=== PATIENT | female | born 1965 | race Caucasian/White ===

== ENCOUNTER 2021-01-07 01:30 | Inpatient (IN) ==
[2021-01-07] MEDS ORDERED: HYDROmorphone 2 MG/1 ML VIAL IV STA (01:49)
[2021-01-07] MEDS ORDERED: ONDANSETRON 4 MG/2 ML VIAL IV STA (01:49)
[2021-01-07] MEDS ORDERED: SODIUM CHLORIDE 0.9% 500 ML IV STA (01:49)
[2021-01-07 02:07] LABS: Basophils % 0.3 % (0.0-0.8); Eosinophils # 0.1 10*3/uL (0.0-0.87); Eosinophils % 0.9 % (0.00-10.9); Hematocrit 39.8 VOL% (35.7-47.0); Hemoglobin 12.6 GM/DL (12.0-16.0); Immature Granulocytes % 0.4 %; Immature Granulocytes Absolute 0.04 #; Lymphocytes # 1.1 10*3/uL (1.4-4.0); Mean Corpuscular HGB Conc 31.7 GM/DL (32-36); Mean Corpuscular Volume 90.5 FL (87-102); Mean Platelet Volume 9.7 FL (9.6-12.0); Monocytes % 7.8 % (1.7-12.7); Neutrophils % 79.6 % (38.7-73.9); Platelet Count 281 T/CUMM (130-400); Red Cell Distribution Width 13.1 % (9.3-17.3); White Blood Count 9.5 T/CUMM (4-12)
[2021-01-07 02:26] LABS: Albumin 3.3 G/DL (3.4-5.0); Bilirubin,Total 0.7 MG/DL (0.2-1.0); Osmolality,Calculated 282.1 MOS/KG (273-304); Potassium 3.6 MMOL/L (3.5-5.1); Total Protein 6.8 G/DL (6.4-8.2)
[2021-01-07] MEDS ORDERED: PROMETHAZINE 25 MG/1 ML VIAL IM STA (02:36)
[2021-01-07] MEDS ORDERED: PIPERACILLIN/TAZOBACTAM 3,375 MG in SODIUM CHLORIDE 0.9% 100 ML IV STA (02:38)
[2021-01-07 03:21] LABS: Bacteria,Urine Occasional /HPF (Few); Bilirubin,Urine Negative (Negative); Blood, Urine Negative (Negative); Calcium Oxalate Crystals,Urine Occasional /HPF (Few); Glucose,Urine (UA) Negative (Negative); Ketones,Urine Negative (Negative); Mucus,Urine Many /LPF (Occasional); Nitrite,Urine Negative (Negative); Protein,Urine Negative; RBC,Urine 2 /HPF (0-4); Squamous Epithelial Cell,Urine Occasional /HPF (0-10); Urine Appearance CLEAR (Clear); Urine Color Yellow (Yellow); WBC,Urine 2 /HPF (0-6)
[2021-01-07] MEDS ORDERED: SODIUM CHLORIDE 0.9% 500 ML IV ONE ×2 (04:10→04:42)
[2021-01-07] MEDS ORDERED: GLUCAGON 1 MG VIAL IM PRN (04:31)
[2021-01-07] MEDS ORDERED: PROMETHAZINE 25 MG/1 ML VIAL IM PRN (04:31)
[2021-01-07] MEDS ORDERED: DEXTROSE 50% 25 GM/50 ML VIAL IV PRN (04:31)
[2021-01-07] MEDS ORDERED: ONDANSETRON 4 MG/2 ML VIAL IV PRN (04:31)
[2021-01-07] MEDS ORDERED: HYDROmorphone 2 MG/1 ML VIAL IV PRN ×2 (04:34→09:23)
[2021-01-07] MEDS: SODIUM CHLORIDE 0.9% 1,000 ML IV SCH ×3 (06:28→21:37)
[2021-01-07] MEDS: PANTOPRAZOLE 40 MG VIAL IV SCH (09:20)
[2021-01-07] MEDS: HYDROmorphone 2 MG/1 ML VIAL IV SCH ×8 (09:21→23:56)
[2021-01-07] MEDS: PIPERACILLIN/TAZOBACTAM 3,375 MG in SODIUM CHLORIDE 0.9% 100 ML IV SCH ×2 (10:21→18:27)
[2021-01-08] MEDS: HYDROmorphone 2 MG/1 ML VIAL IV SCH ×4 (02:36→08:37)
[2021-01-08] MEDS: PIPERACILLIN/TAZOBACTAM 3,375 MG in SODIUM CHLORIDE 0.9% 100 ML IV SCH ×2 (02:37→09:11)
[2021-01-08 06:22] LABS: Basophils % 0.7 % (0.0-0.8); Eosinophils # 0.1 10*3/uL (0.0-0.87); Hematocrit 34.9 VOL% (35.7-47.0); Hemoglobin 11.1 GM/DL (12.0-16.0); Immature Granulocytes % 0.2 %; Immature Granulocytes Absolute 0.01 #; Lymphocytes # 1.2 10*3/uL (1.4-4.0); Lymphocytes % 30.6 % (21.3-54.2); Mean Corpuscular HGB Conc 31.8 GM/DL (32-36); Mean Corpuscular Volume 91.4 FL (87-102); Mean Platelet Volume 9.9 FL (9.6-12.0); Monocytes % 11.4 % (1.7-12.7); Neutrophils % 55.1 % (38.7-73.9); Platelet Count 227 T/CUMM (130-400); Red Blood Count 3.82 MC/CUMM (3.8-5.5); Red Cell Distribution Width 13.4 % (9.3-17.3); White Blood Count 4.1 T/CUMM (4-12)
[2021-01-08 06:36] LABS: Albumin 2.5 G/DL (3.4-5.0); Bilirubin,Total 0.5 MG/DL (0.2-1.0); Calcium 8.3 MG/DL (8.5-10.1); Osmolality,Calculated 283.8 MOS/KG (273-304); Potassium 3.4 MMOL/L (3.5-5.1); Total Protein 5.2 G/DL (6.4-8.2)
[2021-01-08] MEDS ORDERED: cefOXitin 2,000 MG in SYRINGE 1 EACH IV ONE (07:08)
[2021-01-08] MEDS ORDERED: INDOCYANINE GREEN 25 MG VIAL IV ONE (07:08)
[2021-01-08] MEDS ORDERED: HYDROmorphone 2 MG/1 ML VIAL IV PRN ×2 (08:28→08:36)
[2021-01-08] MEDS: PANTOPRAZOLE 40 MG VIAL IV SCH (09:11)
[2021-01-08] MEDS ORDERED: LIDOCAINE 1%/EPI INJ 20 ML VIAL ONE (10:58)
[2021-01-08] MEDS ORDERED: BUPIVACAINE MPF 0.25% 30 ML VIAL ONE (10:58)
[2021-01-08] MEDS ORDERED: TISSUE ADHESIVE 1 EACH APPLICATOR TOP ONE (10:58)
[2021-01-08 14:24] VITALS: BP 106/70
== END 2021-01-08 17:59 | disposition home or self-care (01) | DRG 418 ==
LOC: EDUNIT# → EDBD → N.ED 01:30 → N.EDINP 03:47 → N.3E 04:00
PROVIDERS: ADMIT Internal Medicine; ATTEND Internal Medicine